=== PATIENT | female | born 1975 | race Caucasian/White ===

== ENCOUNTER 2025-08-08 15:31 | Emergency (ER) | payer BC ==
[~2025-08-08] VITALS: Ht 160 cm; Wt 52.2 kg
[2025-08-08] MEDS ORDERED: ACETAMINOPHEN ES 500 MG TABLET ONE (16:54)
[2025-08-08] MEDS ORDERED: IBUPROFEN 600 MG TABLET ONE (16:55)
[2025-08-08] MEDS: IBUPROFEN 600 MG TABLET PO ONE (16:56)
[2025-08-08] MEDS: ACETAMINOPHEN ES 500 MG TABLET PO ONE (16:58)
[2025-08-08] MEDS ORDERED: IBUP-1957 PO (17:46)
[2025-08-08] MEDS ORDERED: ACET-2030 PO (17:46)
[2025-08-08] MEDS ORDERED: CYCL10TA9 PO (17:55)
[2025-08-08 18:37] VITALS: BP 126/64; TEMP 98; O2SAT 98
== END 2025-08-08 18:37 | disposition home or self-care (01) ==
LOC: ER 15:38
DX: S00.93XA Contusion of unspecified part of head, initial encounter (principal); E03.9 Hypothyroidism, unspecified; D35.2 Benign neoplasm of pituitary gland; W10.9XXA Fall (on) (from) unspecified stairs and steps, initial encounter; Y93.89 Activity, other specified; Y92.89 Other specified places as the place of occurrence of the external cause; Y99.8 Other external cause status
CPT/HCPCS: 70450-TC; 70486-TC; 72125-TC; 73552; 73610-TC; 73630-TC